=== PATIENT | male | born 1950 | race Hispanic/Latino ===

== ENCOUNTER 2023-08-23 18:57 | Emergency (ER) | payer MEDICARE, OTHER ==
[~2023-08-23] VITALS: Ht 170.2 cm; Wt 74.8 kg
[~2023-08-23 18:57] MED LIST: CLEOCIN HCL300 MG PO; DOXYCYCLINE HY100 MG PO; LOSARTAN POTASS25 MG PO
[2023-08-23] MEDS ORDERED: DOXYCYCLINE HY100 MG PO (19:41)
[2023-08-23] MEDS ORDERED: MUPIROCIN22 GM TOP (19:41)
[2023-08-23] MEDS ORDERED: CEPHALEXIN500 MG PO (19:41)
[2023-08-23] MEDS ORDERED: KETOROLAC TROME10 MG PO (19:41)
[2023-08-23 20:45] VITALS: BP 173/93; PULSE 75; RESP 20; TEMP 97.5; O2SAT 100
== END 2023-08-23 19:48 | disposition home or self-care (01) ==
LOC: FSED 19:07
DX: L72.8 Other follicular cysts of the skin and subcutaneous tissue (principal); L08.9 Local infection of the skin and subcutaneous tissue, unspecified
CPT/HCPCS: 99283

== ENCOUNTER 2024-03-27 10:24 | Emergency (ER) | payer MEDICARE, OTHER ==
[~2024-03-27] VITALS: Ht 172.7 cm; Wt 109.1 kg
[~2024-03-27 10:24] MED LIST changes: +CEPHALEXIN500 MG PO; +KETOROLAC TROME10 MG PO; +MUPIROCIN22 GM TOP
[2024-03-27] MEDS ORDERED: VENTOLIN HFA18 GM INH (11:11)
[2024-03-27] MEDS ORDERED: LEXAPRO10 MG PO (11:11)
[2024-03-27] MEDS ORDERED: B-123000 MCG (11:11)
[2024-03-27] MEDS ORDERED: ARICEPT10 MG PO (11:11)
[2024-03-27] MEDS ORDERED: ADVAIR 250-501 EACH INH (11:11)
[2024-03-27] MEDS ORDERED: MELATONIN3 MG PO (11:11)
[2024-03-27] MEDS ORDERED: COZAAR25 MG PO (11:11)
[2024-03-27] MEDS ORDERED: FUROSEMIDE40 MG PO (11:11)
[2024-03-27] MEDS ORDERED: NORVASC2.5 MG PO (11:11)
[2024-03-27] MEDS ORDERED: TRAZODONE HCL50 MG PO (11:11)
[2024-03-27] MEDS ORDERED: BENZONATATE100 MG PO (12:02)
[2024-03-27 12:04] VITALS: PULSE 92; RESP 16; TEMP 97.9; O2SAT 95
[2024-03-27 12:06] VITALS: BP 138/83; PULSE 57; RESP 16; TEMP 97.7
== END 2024-03-27 12:02 | disposition home or self-care (01) ==
LOC: FSED 10:45
DX: R05.9 Cough, unspecified (principal); J06.9 Acute upper respiratory infection, unspecified; Z11.52 Encounter for screening for COVID-19
CPT/HCPCS: 0223U; 71046; 83518; 87400; 99284